=== PATIENT | male | born 1935 | race Caucasian/White ===

== ENCOUNTER → 2016-05-31 | Outpatient (CLI) | payer MEDICARE ==
[2016-05-31 11:02] LABS: Aty Lym Flag Slight; CHCM 32.8; HCT 42.3 % (39.0-53.0); HDW 2.71; MCH 31.6 pg (25.0-35.0); MCHC 33.2 g/dL (31.0-37.0); MCV 95.1 fL (80.0-100.0); Mean Platelet Volume 8.6; RBC 4.45 m/uL (4.30-5.90); RDW 13.5 % (11.5-15.5); WBC 5.4 k/uL (3.8-10.6); WBC (Perox) 5.46
[2016-05-31 11:11] LABS: ALT 30 U/L (21-72); AST 25 U/L (17-59); Alkaline Phosphatase 93 U/L (38-126); Anion Gap 10 mmol/L; Blood Urea Nitrogen 20 mg/dL (9-20); Calcium 9.6 mg/dL (8.4-10.2); Carbon Dioxide 27 mmol/L (22-30); Chloride 106 mmol/L (98-107); Cholesterol 199 mg/dL (<200); Creatine Kinase 80 U/L (55-170); Glucose 81 mg/dL (74-99); HDL Cholesterol 61 mg/dL (40-60); Non-African American GFR(MDRD) >60 (>60 ml/min/1.73 sqM); Potassium 4.3 mmol/L (3.5-5.1); Sodium 143 mmol/L (137-145); Total Bilirubin 0.8 mg/dL (0.2-1.3); Total Protein 6.9 g/dL (6.3-8.2); Triglycerides 120 mg/dL (<150)
[2016-05-31 11:40] LABS: Prostate Specific Antigen 5.33 ng/mL (0.00-4.00)
[2016-05-31 11:49] LABS: Add Differential Manual Differential
[2016-05-31 11:51] LABS: Nucleated Red Blood Cells 0 /100 WBC (0-0); Total Cells Counted 100
[2016-05-31 11:58] LABS: Vitamin B12 >1000 pg/mL
== END ==
LOC: LABWHC1 08:40
PROVIDERS: ATTEND Family Medicine
DX: G47.10 Hypersomnia, unspecified (principal); F03.90 Unspecified dementia, unspecified severity, without behavioral disturbance, psychotic disturbance, mood disturbance, and anxiety; I25.10 Atherosclerotic heart disease of native coronary artery without angina pectoris; N18.3 Chronic kidney disease, stage 3 (moderate); C61 Malignant neoplasm of prostate
CPT/HCPCS: 36415; 80053; 80061; 82533; 82550; 82607; 82627; 84153; 84403; 84439; 84443; 85025

== ENCOUNTER → 2016-09-19 | Outpatient (CLI) | payer MEDICARE ==
[2016-09-19 08:19] LABS: Aty Lym Flag Slight; CHCM 32.8; HCT 46.2 % (39.0-53.0); HDW 2.55; HGB 14.9 gm/dL (13.0-17.5); MCH 30.6 pg (25.0-35.0); MCHC 32.2 g/dL (31.0-37.0); Mean Platelet Volume 8.1; RBC 4.87 m/uL (4.30-5.90); RDW 14.4 % (11.5-15.5); WBC 6.1 k/uL (3.8-10.6); WBC (Perox) 5.98
[2016-09-19 10:04] LABS: Add Differential Manual Differential
[2016-09-19 10:06] LABS: Manual Review Performed; Nucleated Red Blood Cells 0 /100 WBC (0-0); RBC Morphology Normal; Total Cells Counted 100
[2016-09-19 12:08] LABS: ALT 38 U/L (21-72); AST 28 U/L (17-59); Alkaline Phosphatase 99 U/L (38-126); Anion Gap 10 mmol/L; Blood Urea Nitrogen 23 mg/dL (9-20); Calcium 9.5 mg/dL (8.4-10.2); Carbon Dioxide 26 mmol/L (22-30); Chloride 108 mmol/L (98-107); Cholesterol 205 mg/dL (<200); Creatine Kinase 120 U/L (55-170); Glucose 93 mg/dL (74-99); HDL Cholesterol 56 mg/dL (40-60); Non-African American GFR(MDRD) >60 (>60 ml/min/1.73 sqM); Potassium 4.7 mmol/L (3.5-5.1); Sodium 144 mmol/L (137-145); Total Bilirubin 0.6 mg/dL (0.2-1.3); Total Protein 6.7 g/dL (6.3-8.2); Triglycerides 127 mg/dL (<150)
[2016-09-19 12:43] LABS: Prostate Specific Antigen 5.38 ng/mL (0.00-4.00)
[2016-09-19 12:45] LABS: Hemoglobin A1C 5.7 % (4.2-6.1)
[2016-09-19 13:01] LABS: Vitamin B12 573 pg/mL
== END | disposition home or self-care (01) ==
LOC: LABWHC1 07:52
PROVIDERS: ATTEND Family Medicine
DX: E78.5 Hyperlipidemia, unspecified (principal); E03.9 Hypothyroidism, unspecified; J44.9 Chronic obstructive pulmonary disease, unspecified; I48.0 Paroxysmal atrial fibrillation; N18.3 Chronic kidney disease, stage 3 (moderate); R97.20 Elevated prostate specific antigen [PSA]
CPT/HCPCS: 36415; 80053; 80061; 82306; 82550; 82607; 83036; 84153; 84439; 84443; 84550; 85025

== ENCOUNTER 2016-12-11 04:48 | Emergency (ER) | payer MEDICARE ==
[2016-12-11 04:58] VITALS: RESP 16
[2016-12-11] MEDS ORDERED: cloNIDine HCL 0.2 MG TAB PO STA (05:01)
[2016-12-11 05:42] LABS: Basophils % (A) 1 %; CH 32.4; CHCM 34.1; Eosinophils # (A) 0.1 k/uL (0-0.7); Eosinophils % (A) 2 %; HCT 41.6 % (39.0-53.0); HDW 2.58; HGB 13.5 gm/dL (13.0-17.5); Luc # (Auto) 0.27; Luc % (Auto) 3; Lymphocytes % (A) 12 %; MCH 31.1 pg (25.0-35.0); MCHC 32.5 g/dL (31.0-37.0); MCV 95.6 fL (80.0-100.0); Mean Platelet Volume 8.2; Monocytes # (A) 1.3 k/uL (0-1.0); Monocytes % (A) 16 %; Neutrophils # (A) 5.4 k/uL (1.3-7.7); Neutrophils % (A) 67 %; RBC 4.35 m/uL (4.30-5.90); RDW 14.9 % (11.5-15.5); WBC 8.1 k/uL (3.8-10.6); WBC (Perox) 8.23
[2016-12-11 05:54] LABS: INR 2.3 (<1.2); Partial Thromboplastin Time 33.4 sec (22.0-30.0); Prothrombin Time 22.6 sec (9.0-12.0)
--- NOTE | 2016-12-11 06:00 | ED ---
ENT HPI - General Chief complaint: ENT Stated complaint: NOSE BLEED Time Seen by Provider: 12/11/16 04:54 Source: patient, family () Mode of arrival: ambulatory Limitations: no limitations, language barrier - History of Present Illness Initial comments: This patient is an 81-year-old man, accompanied by his , who presents to be evaluated for epistaxis. The patient has reportedly been having some recurrent nosebleeds over the past 1-2 weeks. He was seen yesterday at the clinic, where he had a nasal tampon placed. The patient reportedly woke his troy to show her the number of facial tissues that he had used 2 wipe blood from his nose tonight. The patient does have a little underlying dementia and is not able to add much other history. On review of systems, he is not complaining of any symptoms of anemia, including no lightheadedness or syncope, palpitations, chest pain, dyspnea, diaphoresis or any nausea or vomiting. He states that he is not swallowing any blood. MD complaint: epistaxis -: hour(s) Severity: mild Consistency: now resolved Context-Epistaxis: warfarin use - Related Data Home Medications Medication Instructions Recorded Confirmed Levothyroxine Sodium [Synthroid] 125 mcg PO DAILY 07/16/13 01/17/15 Pravastatin Sodium [Pravachol] 40 mg PO DAILY 07/16/13 01/17/15 Multivitamins, Thera [Multivitamin 1 tab PO DAILY 12/31/13 01/17/15 (formulary)] Warfarin [Coumadin] 5 mg PO SUTH 12/31/13 01/17/15 Donepezil HCl 20 mg PO HS 09/05/14 01/17/15 Metoprolol Tartrate [Lopressor] 25 mg PO HS 09/05/14 01/17/15 Cyanocobalamin [Vitamin B-12] 1,000 mcg PO BID 01/14/15 01/17/15 Metoprolol Tartrate [Lopressor] 50 mg PO DAILY 01/14/15 01/17/15 Warfarin [Coumadin] 7.5 mg PO [id number] 01/14/15 01/17/15 Allergies Allergy/AdvReac Type Severity Reaction Status Date / Time No Known Allergies Allergy Verified 12/11/16 04:57 Review of Systems ROS Statement: Those systems with pertinent positive or pertinent negative responses have been documented in the HPI. ROS Other: All systems not noted in ROS Statement are negative. Constitutional: Denies: weakness Eyes: Denies: vision change ENT: Reports: epistaxis Respiratory: Denies: dyspnea Cardiovascular: Denies: chest pain, palpitations, syncope Gastrointestinal: Denies: vomiting Neurological: Denies: headache, weakness Past Medical History Past Medical History: Cancer, COPD, Dementia Additional Past Medical History / Comment(s): ARRHYTHMIA, SOB W/ ACTIVITY, PROSTATE CA W/ RADIATION 2009, SKIN CA. kidney stone History of Any Multi-Drug Resistant Organisms: None Reported Past Surgical History: Adenoidectomy, Heart Catheterization, Tonsillectomy Additional Past Surgical History / Comment(s): CHELO CATARACT Past Anesthesia/Blood Transfusion Reactions: Motion Sickness Past Psychological History: No Psychological Hx Reported Smoking Status: Former smoker - Past Family History Father Family Medical History: Cancer, Myocardial Infarction (OK) Mother Family Medical History: Myocardial Infarction (OK) General Exam Limitations: no limitations, language barrier General appearance: alert, in no apparent distress Head exam: Present: atraumatic, normocephalic Eye exam: Present: normal appearance ENT exam: Present: normal oropharynx, mucous membranes moist, other (Patient has a nasal packing in the right narrow with no bleeding.) Respiratory exam: Present: normal lung sounds bilaterally. Absent: respiratory distress, wheezes, rales, rhonchi, stridor Cardiovascular Exam: Present: regular rate, normal rhythm, normal heart sounds. Absent: systolic murmur, diastolic murmur, rubs, gallop GI/Abdominal exam: Present: soft. Absent: tenderness Skin exam: Present: warm, dry, intact, normal color. Absent: rash Course Vital Signs 12/11/16 12/11/16 12/11/16 04:50 05:46 06:08 Temperature 98.5 F 97.6 F Pulse Rate 62 60 62 Respiratory 16 16 16 Rate Blood Pressure 198/86 135/65 128/67 O2 Sat by Pulse 93 L 100 100 Oximetry Medical Decision Making - Lab Data Result diagrams: 12/11/16 05:15 Lab Results 12/11/16 12/11/16 Range/Units 05:15 05:15 WBC 8.1 (3.8-10.6) k/uL RBC 4.35 (4.30-5.90) m/uL Hgb 13.5 (13.0-17.5) gm/dL Hct 41.6 (39.0-53.0) % MCV 95.6 (80.0-100.0) fL MCH 31.1 (25.0-35.0) pg MCHC 32.5 (31.0-37.0) g/dL RDW 14.9 (11.5-15.5) % Plt Count 197 (150-450) k/uL Neutrophils % 67 % Lymphocytes % 12 % Monocytes % 16 % Eosinophils % 2 % Basophils % 1 % Neutrophils # 5.4 (1.3-7.7) k/uL Lymphocytes # 1.0 (1.0-4.8) k/uL Monocytes # 1.3 H (0-1.0) k/uL Eosinophils # 0.1 (0-0.7) k/uL Basophils # 0.0 (0-0.2) k/uL Manual Slide Review Performed Large Platelets Present Polychromasia Present Anisocytosis (manual) Present PT 22.6 H (9.0-12.0) sec INR 2.3 H (<1.2) APTT 33.4 H (22.0-30.0) sec Disposition Clinical Impression: Epistaxis, Hypertension Disposition: HOME SELF-CARE Condition: Good Instructions: Nosebleed (ED) Referrals: Rudy Dent MD [Primary Care Provider] - 1-2 days Shiva Vanessa MD [STAFF PHYSICIAN] - 1-2 days
[2016-12-11 06:11] VITALS: BP 128/67; PULSE 62; TEMP 97.6
[2016-12-11 06:46] LABS: Large Platelets Present; Manual Review Performed; Polychromasia Present
== END 2016-12-11 06:07 | disposition home or self-care (01) ==
LOC: EC 04:48
DX: R04.0 Epistaxis (principal); I10 Essential (primary) hypertension; I49.9 Cardiac arrhythmia, unspecified; Z85.828 Personal history of other malignant neoplasm of skin; Z85.46 Personal history of malignant neoplasm of prostate; Z95.5 Presence of coronary angioplasty implant and graft; Z87.891 Personal history of nicotine dependence; Z79.01 Long term (current) use of anticoagulants; Z79.899 Other long term (current) drug therapy
CPT/HCPCS: 36415; 85025; 85610; 85730; 99283